=== PATIENT | female | born 1985 | race Caucasian/White ===

== ENCOUNTER 2018-02-02 23:57 | Emergency (ER) | payer BC ==
[~2018-02-02] VITALS: Ht 160 cm; Wt 65.1 kg
[2018-02-03 00:02] VITALS: TEMP 36.5; Ht 160 cm; Wt 65.1 kg
[2018-02-03] MEDS ORDERED: ONDANSETRON INJ 2 MG/ML 2 ML VIAL IV STA (00:19)
[2018-02-03] MEDS ORDERED: SODIUM CHLORIDE 0.9% 1000ML 1,000 ML IV STA (00:19)
--- NOTE | 2018-02-03 00:26 | EMERGENCY ROOM VISIT NOTE ---
History Report prepared by Kayla: Joan Love Under the Supervision of: Dr. Rebecca Buck D.O. First contact with patient: 00:05 Chief Complaint: SYNCOPE Stated Complaint: PASSED OUT,HIT HEAD,VOMITING History of Present Illness The patient is a 32 year old female who presents to the Emergency Room with complaints of episodic general syncope 1.5 hours ago. The patient states that her had something in his eye and she was checking it. She states that eyeballs gross her out and she became nauseous. She went to vomit, though she passed out. Per , the patient appeared to have stopped breathing so he began CPR. He states that he did 25 compressions and one breath. He notes that he did not use a significant amount of pressure when doing the compressions. He reports the patient came to and then vomited. He states that he did not contact emergency services, because she woke up and they came to the ED immediately. The patient denies any chest pain. She reports hitting her head when she passed out and then vomited twice immediately after. She notes that she still feels nauseous. She reports a history of hypoglycemia with associated episodes of syncope, though she has not had an episode in 10 years. She states that she has been watching her sugar intake. Her LNMP was three weeks ago. She denies any chance of , because her has a vasectomy. Source of History: patient Onset: 1.5 hours ago Position: other (general) Quality: other (syncope) Timing: other (episodic) Associated Symptoms: + LOC, + nausea, + vomiting, No chest pain Note: Notes head injury. Review of Systems See HPI for pertinent positives & negatives. A total of 10 systems reviewed and were otherwise negative. Past Medical & Surgical Medical Problems: (1) Hypoglycemia Family History Diabetes mellitus Social History Smoking Status: Never Smoker Smokeless Tobacco Use: No Alcohol Use: none Drug Use: none Marital Status: Housing Status: lives with significant other Occupation Status: employed Current/Historical Medications No Active Prescriptions or Reported Meds Allergies Coded Allergies: No Known Allergies (Unverified , 02/03/18) Physical Exam Vital Signs Date Time Temp Pulse Resp B/P (MAP) Pulse Ox O2 Delivery O2 Flow Rate FiO2 02/03/18 02:29 69 18 97/52 96 Room Air 02/03/18 00:50 62 02/03/18 00:02 36.5 65 18 102/66 100 Room Air Physical Exam HEENT: Head - normocephalic and cephalohematoma on right occiput. Pupils are equal, round, and reactive to light. Extraocular eye muscles are intact, and sclera are anicteric. Nose - moist nasal mucosa without discharge. Mouth - moist buccal mucosa. Oropharynx is nonerythematous and there is no tonsillar exudate or edema noted. Neck: Supple; no JVD, nuchal rigidity, cervical lymphadenopathy, or auscultated bruits. Heart: Regular rate and rhythm. There is a normal S1 and S2 with no murmurs, clicks, or gallops appreciated. Lungs: Clear to auscultation bilaterally with no wheezes, rales, or rhonchi. Abdomen: Soft, completely nontender, nondistended, with good bowel sounds. There are no palpable pulsatile masses or hepatosplenomegaly. There is no guarding, rigidity, or rebound noted. Extremities: No evidence of cyanosis, clubbing, or edema. There are easily palpable peripheral pulses. Skin: warm and dry with good turgor and no rashes. Pale. Medical Decision & Procedures ER Provider Diagnostic Interpretation: Radiology results as stated below per my review and the radiologist's interpretation: CY HEAD: No ICH, mass effect or edema. No skull fracture. Radiologist: Daryn Holden MD Study ready at 01:43 and initial results transmitted at 02:17 Laboratory Results 02/03/18 00:25 Red Blood Count 4.50, Mean Corpuscular Volume 88.4, Mean Corpuscular Hemoglobin 31.6, Mean Corpuscular Hemoglobin Concent 35.7, Mean Platelet Volume 11.2, Neutrophils (%) (Auto) 59.4, Lymphocytes (%) (Auto) 27.0, Monocytes (%) (Auto) 9.8, Eosinophils (%) (Auto) 3.2, Basophils (%) (Auto) 0.6, Neutrophils # (Auto) 3.92, Lymphocytes # (Auto) 1.78, Monocytes # (Auto) 0.65, Eosinophils # (Auto) 0.21, Basophils # (Auto) 0.04 02/03/18 00:25 Test 02/03/18 00:20 02/03/18 00:25 Urine Color YELLOW Urine Appearance CLEAR (CLEAR) Urine pH 6.0 (4.5-7.5) Urine Specific Jackson 1.027 (1.000-1.030) Urine Protein 2+ (NEG) Urine Glucose (UA) NEG (NEG) Urine Ketones 1+ (NEG) Urine Occult Blood NEG (NEG) Urine Nitrite NEG (NEG) Urine Bilirubin NEG (NEG) Urine Urobilinogen NEG (NEG) Urine Leukocyte Esterase NEG (NEG) Urine WBC (Auto) 1-5 /hpf (0-5) Urine RBC (Auto) 0-4 /hpf (0-4) Urine Hyaline Casts (Auto) 1-5 /lpf (0-5) Urine Epithelial Cells (Auto) >30 /lpf (0-5) Urine Bacteria (Auto) NEG (NEG) Urine Test NEG (NEG) White Blood Count 6.60 K/uL (4.8-10.8) Red Blood Count 4.50 M/uL (4.2-5.4) Hemoglobin 14.2 g/dL (12.0-16.0) Hematocrit 39.8 % (37-47) Mean Corpuscular Volume 88.4 fL (80-100) Mean Corpuscular Hemoglobin 31.6 pg (25-34) Mean Corpuscular Hemoglobin Concent 35.7 g/dl (32-36) Platelet Count 164 K/uL (130-400) Mean Platelet Volume 11.2 fL (7.4-10.4) Neutrophils (%) (Auto) 59.4 % Lymphocytes (%) (Auto) 27.0 % Monocytes (%) (Auto) 9.8 % Eosinophils (%) (Auto) 3.2 % Basophils (%) (Auto) 0.6 % Neutrophils # (Auto) 3.92 K/uL (1.4-6.5) Lymphocytes # (Auto) 1.78 K/uL (1.2-3.4) Monocytes # (Auto) 0.65 K/uL (0.11-0.59) Eosinophils # (Auto) 0.21 K/uL (0-0.5) Basophils # (Auto) 0.04 K/uL (0-0.2) RDW Standard Deviation 39.1 fL (36.4-46.3) RDW Coefficient of Variation 12.1 % (11.5-14.5) Immature Granulocyte % (Auto) 0.0 % Immature Granulocyte # (Auto) 0.00 K/uL (0.00-0.02) Anion Gap 8.0 mmol/L (3-11) Est Creatinine Clear Calc Drug Dose 88.3 ml/min Estimated GFR () 108.1 Estimated GFR (Non- 93.3 BUN/Creatinine Ratio 21.4 (10-20) Calcium Level 9.1 mg/dl (8.5-10.1) Laboratory results per my review. Medications Administered Medications (Trade) Dose Ordered Sig/Deepthi Route Start Time Stop Time Status Last Admin Dose Admin Sodium Chloride 1,000 ml @ 999 mls/hr Q1H1M STAT IV 02/03/18 00:19 02/03/18 01:19 DC 02/03/18 00:50 999 MLS/HR Ondansetron HCl (Zofran Inj) 4 mg NOW STAT IV 02/03/18 00:19 02/03/18 00:21 DC 02/03/18 00:50 4 MG Procedure 0019: Ordered Zofran 4 mg IV and Sodium Chloride 1,000 ml @ 999 mls/hr IV. ECG Per My Interpretation Indication: syncope Rate (beats per minute): 64 Rhythm: normal sinus Findings: no acute ischemic change, no ectopy, other (No dysrhythmia ) ED Course 0007: Past medical records reviewed. The patient was evaluated in room A11B. A complete history and physical exam was performed. The patient was vomiting in the bathroom when I entered the room. IV lock was established. Labs were drawn as above. A 12-lead EKG was obtained as described above 0019: Ordered Zofran 4 mg IV and Sodium Chloride 1,000 ml @ 999 mls/hr IV. 0120: I reassessed the patient at this time. She is still nauseous. She agreed to have a CT scan of the brain. 0233: I reassessed the patient at this time. She is drinking water without issue. She reports feeling better. I discussed the results and treatment plan with the patient. I answered all pertaining questions that she had. She expressed understanding and verbalized agreement. The patient will be discharged home. Medical Decision The patient is a 32 year old female who presents to the ED with syncope. Differential diagnosis includes hypoglycemia, vasovagal syncope, cardiac dysrhythmia, and intracranial trauma. Lab results showed: Normal WBC. Normal H&H. Normal renal function. Gluc 108. Negative . Urine: 1+ Ketones. This is a 32-year-old female patient who suffered an episode of vasovagal syncope at home. The patient did strike the back of her head on the floor. CT scan of the brain was unremarkable. The patient was allowed to rest here in the emergency department and continued to feel better. She was able to drink clear liquids without difficulty. I have asked the patient to follow-up closely with her PCP with regards to syncope. Medication Reconcilliation Current Medication List: was personally reviewed by me Blood Pressure Screening Patient's blood pressure: Normal blood pressure Impression Primary Impression: Syncope Scribe Attestation The scribe's documentation has been prepared under my direction and personally reviewed by me in its entirety. I confirm that the note above accurately reflects all work, treatment, procedures, and medical decision making performed by me. Departure Information Dispostion Home / Self-Care Prescriptions No Active Prescriptions or Reported Meds Referrals Moise Dee (PCP) Forms HOME CARE DOCUMENTATION FORM, IMPORTANT VISIT INFORMATION Patient Instructions ED Syncope Vasovagal, My [facility] Additional Instructions Rest. Move slowly. take a bland diet and plenty of clear liquids Follow up with PCP for any continued symptoms Problem Qualifiers Primary Impression: Syncope Syncope type: vasovagal syncope Qualified Codes: R55 - Syncope and collapse
[2018-02-03 00:48] LABS: BASO % 0.6 %; BASO ABS # 0.04 K/uL (0-0.2); EOS % 3.2 %; EOS ABS # 0.21 K/uL (0-0.5); HEMATOCRIT 39.8 % (37-47); HEMOGLOBIN 14.2 g/dL (12.0-16.0); LYMPH ABS # 1.78 K/uL (1.2-3.4); MEAN CELL VOLUME 88.4 fL (80-100); MEAN CORPUSCULAR HEMOGLOBIN 31.6 pg (25-34); MEAN CORPUSCULAR HGB CONC 35.7 g/dl (32-36); MEAN PLATELET VOLUME 11.2 fL (7.4-10.4); MONO % 9.8 %; MONO ABS # 0.65 K/uL (0.11-0.59); NEUT % 59.4 %; NEUT ABS # 3.92 K/uL (1.4-6.5); PLATELET COUNT 164 K/uL (130-400); RED CELL DISTRIBUTION WIDTH CV 12.1 % (11.5-14.5); RED CELL DISTRIBUTION WIDTH SD 39.1 fL (36.4-46.3)
[2018-02-03 01:06] LABS: CALCIUM 9.1 mg/dl (8.5-10.1); CREATININE 0.83 mg/dl (0.60-1.20); POTASSIUM 3.6 mmol/L (3.5-5.1)
[2018-02-03 02:29] VITALS: BP 97/52; PULSE 69; O2SAT 96
--- NOTE | 2018-02-03 08:09 | DIAGNOSTIC IMAGING REPORT ---
CT SCAN OF THE BRAIN WITHOUT IV CONTRAST CLINICAL HISTORY: Head injury. COMPARISON STUDY: No priors. TECHNIQUE: Unenhanced axial CT scan of the brain is performed from the vertex to the skull base. A dose lowering technique was utilized adhering to the principles of ALARA. CT DOSE: 537.48 mGy.cm FINDINGS: Brain parenchyma: The brain parenchyma is normal in appearance. There is no hemorrhage, mass effect, or evidence of acute territorial ischemia by CT criteria. Herrera-white matter is preserved. No extra-axial fluid collection is seen. Ventricles, sulci, cisterns: Normal in configuration. Intracranial vasculature: The visualized intracranial vasculature at the skull base is normal in appearance. Calvarium: There is no depressed calvarial fracture. Sinuses and mastoids: The visualized paranasal sinuses are clear. The mastoid air cells are well pneumatized. Orbits: The bony orbits are grossly intact. IMPRESSION: No acute intracranial abnormality. Electronically signed by: Danny Morales M.D. 02/03/2018 8:07 AM Dictated Date/Time: 02/03/2018 8:06 AM
== END 2018-02-03 03:08 | disposition home or self-care (01) ==
LOC: C.EDB 23:59 → C.EDA 02-03 03:08
DX: R55 Syncope and collapse (principal); S00.03XA Contusion of scalp, initial encounter; W19.XXXA Unspecified fall, initial encounter; Z83.3 Family history of diabetes mellitus